=== PATIENT | male | born 1955 | race Caucasian/White ===

== ENCOUNTER 2021-11-02 12:53 | Inpatient (IN) | payer OTHER, MEDICARE ==
[~2021-11-02] VITALS: Ht 160 cm; Wt 68.9 kg
[~2021-11-02 12:53] MED LIST: ASPIR 8181 MG PO; ATORVASTATIN CA10 MG PO; PLAVIX75 MG PO
[2021-11-02 13:23] LABS: BASOPHILS % 0.3 % (0.0-1.0); EOSINOPHILS # (AUTO) 0.1 (0.0-0.4); EOSINOPHILS % 0.8 % (0.0-6.0); HEMATOCRIT 47.1 % (38.2-49.6); HEMOGLOBIN 14.9 g/dL (14.0-18.0); LYMPHOCYTES # (AUTO) 1.9 (1.0-3.2); LYMPHOCYTES % 26.7 % (18.0-39.1); MEAN CORPUSCULAR HEMOGLOBIN 30.7 pg (28-32); MEAN CORPUSCULAR HGB CONC 31.6 g/dL (31-35); MEAN CORPUSCULAR VOLUME 96.9 fL (81-99); MONOCYTES # (AUTO) 0.4 (0.2-0.8); MONOCYTES % 5.5 % (4.4-11.3); NEUTROPHILS # (AUTO) 4.8 (2.1-6.9); NEUTROPHILS % 66.4 % (38.7-80.0); PLATELET COUNT 240 x10e3/uL (140-360); RED BLOOD COUNT 4.86 x10e6/uL (4.3-5.7); RED CELL DISTRIBUTION WIDTH 12.7 % (11.7-14.4)
[2021-11-02 13:46] LABS: INR 0.87; PROTHROMBIN TIME 12.5 seconds (11.9-14.5)
[2021-11-02 13:47] LABS: PARTIAL THROMBOPLASTIN TIME 31.9 seconds (23.8-35.5)
[2021-11-02 13:52] LABS: CLARITY,URINE TURBID (CLEAR); COLOR,URINE YELLOW (YELLOW); LEUKOCYTE ESTERASE ,URINE NEGATIVE (NEGATIVE)
[2021-11-02 13:53] LABS: KETONES,URINE NEGATIVE (NEGATIVE); NITRITE,URINE NEGATIVE (NEGATIVE); PROTEIN,URINE DIPSTICK NEGATIVE (NEGATIVE)
[2021-11-02 13:58] LABS: ALBUMIN 3.8 g/dL (3.5-5.0); ALBUMIN/GLOBULIN RATIO 0.9 (0.8-2.0); ALKALINE PHOSPHATASE 64 IU/L (40-150); ANION GAP 15.9 mmol/L (8-16); BLOOD UREA NITROGEN 10 mg/dL (7-26); BUN/CREATININE RATIO 12 (6-25); CALCIUM 9.2 mg/dL (8.4-10.2); CARBON DIOXIDE 25 mmol/L (22-29); CHLORIDE 102 mmol/L (98-107); CREATINE KINASE 66 IU/L (30-200); CREATININE, SERUM 0.82 mg/dL (0.72-1.25); EST GLOMERULAR FILTRATION RATE 94 ML/MIN (60-); GLUCOSE 93 mg/dL (74-118); POTASSIUM 5.9 mmol/L (3.5-5.1); SODIUM 137 mmol/L (136-145)
[2021-11-02 13:58] LABS: AMORPHOUS SEDIMENT,URINE MODERATE (FEW); BACTERIA,URINE FEW /HPF; EPITHELIAL CELLS,URINE FEW /LPF; RBC,URINE 0-5 /HPF (0-5); WBC,URINE (MAN) 0-5 /HPF (0-5)
[2021-11-02 13:59] LABS: ALANINE AMINOTRANSFERASE < 6 IU/L (0-55)
[2021-11-02] MEDS ORDERED: SODIUM CHLORIDE 0.9% 1000ML 1,000 ML IV STA (14:55)
[2021-11-02 17:00] VITALS: BP 137/80
[2021-11-02] MEDS: SODIUM CHLORIDE 0.9% 1000ML 1,000 ML IV SCH (17:00)
[2021-11-02] MEDS ORDERED: CARBIDOPA-LEVO1 EAC2 PO (19:57)
[2021-11-02] MEDS ORDERED: CARBIDOPA-LEVO1 EAC4 PO (19:57)
[2021-11-02] MEDS ORDERED: AMITIZA24 MCG PO (19:57)
[2021-11-02] MEDS ORDERED: QUETIAPINE FUMA50 MG PO (19:57)
[2021-11-02 20:00] VITALS: BP 154/78
[2021-11-02 20:04] LABS: CREATINE KINASE MB 0.9 ng/mL (0-5.0)
[2021-11-02] MEDS: QUETIAPINE FUMARATE 25 MG TAB PO SCH (20:54)
[2021-11-02] MEDS: CARBIDOPA/LEVODOPA 25/100 CR TAB PO SCH (20:54)
[2021-11-02 21:00] VITALS: BP 154/78
[2021-11-02] MEDS ORDERED: CARBIDOPA/LEVODOPA 25/250 TAB PO SCH (21:00)
[2021-11-03] VITALS (8 sets, daily range): BP systolic 83–150; BP diastolic 56–84
[2021-11-03 00:57] LABS: CREATINE KINASE MB 0.8 ng/mL (0-5.0)
[2021-11-03 05:25] LABS: BASOPHILS % 0.5 % (0.0-1.0); EOSINOPHILS # (AUTO) 0.1 (0.0-0.4); EOSINOPHILS % 1.3 % (0.0-6.0); HEMATOCRIT 46.2 % (38.2-49.6); HEMOGLOBIN 14.3 g/dL (14.0-18.0); LYMPHOCYTES % 39.3 % (18.0-39.1); MEAN CORPUSCULAR HEMOGLOBIN 30.7 pg (28-32); MEAN CORPUSCULAR VOLUME 99.1 fL (81-99); MONOCYTES # (AUTO) 0.6 (0.2-0.8); MONOCYTES % 7.5 % (4.4-11.3); NEUTROPHILS # (AUTO) 3.9 (2.1-6.9); NEUTROPHILS % 51.1 % (38.7-80.0); PLATELET COUNT 209 x10e3/uL (140-360); RED BLOOD COUNT 4.66 x10e6/uL (4.3-5.7); RED CELL DISTRIBUTION WIDTH 12.4 % (11.7-14.4)
[2021-11-03] MEDS: SODIUM CHLORIDE 0.9% 1000ML 1,000 ML IV SCH ×2 (05:40→20:55)
[2021-11-03 05:59] LABS: PHOSPHORUS 3.6 MG/DL (2.3-4.7)
[2021-11-03 06:02] LABS: ALBUMIN 3.4 g/dL (3.5-5.0); ALBUMIN/GLOBULIN RATIO 1.2 (0.8-2.0); ALKALINE PHOSPHATASE 59 IU/L (40-150); BLOOD UREA NITROGEN 9 mg/dL (7-26); BUN/CREATININE RATIO 12 (6-25); CALCIUM 8.9 mg/dL (8.4-10.2); CARBON DIOXIDE 23 mmol/L (22-29); CHLORIDE 108 mmol/L (98-107); CHOL/HDL RATIO 3.5 (3.9-4.7); CHOLESTEROL 154 MD/DL (0-199); CREATININE, SERUM 0.73 mg/dL (0.72-1.25); EST GLOMERULAR FILTRATION RATE 108 ML/MIN (60-); GLUCOSE 83 mg/dL (74-118); HDL CHOLESTEROL 44 MG/DL (40-60); LDL CHOLESTEROL 89 MG/DL (60-130); SODIUM 142 mmol/L (136-145); TRIGLYCERIDES 107 MG/DL (0-149)
[2021-11-03 06:10] LABS: ALANINE AMINOTRANSFERASE < 6 IU/L (0-55)
[2021-11-03] MEDS ORDERED: LUBIPROSTONE 24 MCG CAP PO SCH (09:00)
[2021-11-03] MEDS ORDERED: CARBIDOPA/LEVODOPA 25/250 TAB PO SCH (09:00)
[2021-11-03] MEDS ORDERED: ATORVASTATIN 10 MG TAB PO SCH (09:00)
[2021-11-03] MEDS ORDERED: LISINOPRIL 10 MG TAB PO SCH (09:00)
[2021-11-03] MEDS ORDERED: SODIUM CHLORIDE 0.9% 50ML 50 ML ONE (09:14)
[2021-11-03] MEDS ORDERED: GADOBENATE DIMEGLUMINE 1 ML IV ONE (09:15)
[2021-11-03] MEDS: ASPIRIN 81 MG CHEW TAB PO SCH (10:30)
[2021-11-03] MEDS: CLOPIDOGREL BISULFATE 75 MG TAB PO SCH (10:30)
[2021-11-03] MEDS: CARBIDOPA/LEVODOPA 10/100 TAB PO SCH (17:58)
[2021-11-03] MEDS: QUETIAPINE FUMARATE 25 MG TAB PO SCH (20:55)
[2021-11-03] MEDS: CARBIDOPA/LEVODOPA 25/100 CR TAB PO SCH (20:55)
[2021-11-03] MEDS ORDERED: ONDANSETRON HCL INJ 2MG/ML 2ML 2 MG/ML VIAL IV PRN (22:00)
[2021-11-03] MEDS ORDERED: HYDRALAZINE HCL 20 MG/ML VIAL IV PRN (22:00)
[2021-11-03] MEDS ORDERED: ACETAMINOPHEN 325 MG TAB PO PRN (22:00)
[2021-11-04] VITALS (8 sets, daily range): BP systolic 95–140; BP diastolic 60–78
[2021-11-04] MEDS ORDERED: HYDRALAZINE HCL 20 MG/ML VIAL IV PRN (02:00)
[2021-11-04 05:17] LABS: BASOPHILS % 0.4 % (0.0-1.0); EOSINOPHILS # (AUTO) 0.1 (0.0-0.4); HEMATOCRIT 41.5 % (38.2-49.6); HEMOGLOBIN 13.1 g/dL (14.0-18.0); LYMPHOCYTES # (AUTO) 2.8 (1.0-3.2); MEAN CORPUSCULAR HEMOGLOBIN 30.2 pg (28-32); MEAN CORPUSCULAR HGB CONC 31.6 g/dL (31-35); MEAN CORPUSCULAR VOLUME 95.6 fL (81-99); MONOCYTES # (AUTO) 0.5 (0.2-0.8); MONOCYTES % 6.7 % (4.4-11.3); NEUTROPHILS # (AUTO) 3.4 (2.1-6.9); NEUTROPHILS % 50.6 % (38.7-80.0); PLATELET COUNT 215 x10e3/uL (140-360); RED BLOOD COUNT 4.34 x10e6/uL (4.3-5.7); RED CELL DISTRIBUTION WIDTH 12.3 % (11.7-14.4)
[2021-11-04 05:45] LABS: ALANINE AMINOTRANSFERASE < 6 IU/L (0-55); ALBUMIN 3.3 g/dL (3.5-5.0); ALBUMIN/GLOBULIN RATIO 1.1 (0.8-2.0); ALKALINE PHOSPHATASE 61 IU/L (40-150); ANION GAP 12.7 mmol/L (8-16); BLOOD UREA NITROGEN 11 mg/dL (7-26); BUN/CREATININE RATIO 14 (6-25); CALCIUM 8.8 mg/dL (8.4-10.2); CARBON DIOXIDE 25 mmol/L (22-29); CHLORIDE 105 mmol/L (98-107); CREATININE, SERUM 0.78 mg/dL (0.72-1.25); EST GLOMERULAR FILTRATION RATE 100 ML/MIN (60-); GLUCOSE 87 mg/dL (74-118); POTASSIUM 3.7 mmol/L (3.5-5.1); SODIUM 139 mmol/L (136-145)
[2021-11-04] MEDS: FAMOTIDINE 20 MG TAB PO SCH ×2 (07:30→17:05)
[2021-11-04] MEDS: CARBIDOPA/LEVODOPA 10/100 TAB PO SCH ×2 (09:00→13:56)
[2021-11-04] MEDS: DOCUSATE SODIUM 100 MG CAP PO SCH ×2 (09:00→17:05)
[2021-11-04] MEDS: SODIUM CHLORIDE 0.9% 1000ML 1,000 ML IV SCH ×2 (10:20→23:40)
[2021-11-04] MEDS: CLOPIDOGREL BISULFATE 75 MG TAB PO SCH (13:52)
[2021-11-04] MEDS: LUBIPROSTONE 24 MCG CAP PO SCH (13:52)
[2021-11-04] MEDS: ASPIRIN 81 MG CHEW TAB PO SCH (13:52)
[2021-11-04] MEDS: CARBIDOPA/LEVODOPA 25/250 TAB PO SCH (17:05)
[2021-11-04] MEDS ORDERED: ATORVASTATIN 20 MG TAB PO SCH (21:00)
[2021-11-04] MEDS: QUETIAPINE FUMARATE 25 MG TAB PO SCH (21:22)
[2021-11-04] MEDS: CARBIDOPA/LEVODOPA 25/100 CR TAB PO SCH (21:22)
[2021-11-05] VITALS: BP 110/66
[2021-11-05 04:00] VITALS: BP 100/57
[2021-11-05 05:06] LABS: BASOPHILS % 0.4 % (0.0-1.0); EOSINOPHILS # (AUTO) 0.1 (0.0-0.4); EOSINOPHILS % 1.6 % (0.0-6.0); HEMATOCRIT 40.9 % (38.2-49.6); HEMOGLOBIN 13.3 g/dL (14.0-18.0); LYMPHOCYTES % 43.5 % (18.0-39.1); MEAN CORPUSCULAR HEMOGLOBIN 30.6 pg (28-32); MEAN CORPUSCULAR HGB CONC 32.5 g/dL (31-35); MONOCYTES # (AUTO) 0.5 (0.2-0.8); MONOCYTES % 6.9 % (4.4-11.3); NEUTROPHILS # (AUTO) 3.2 (2.1-6.9); NEUTROPHILS % 47.3 % (38.7-80.0); PLATELET COUNT 204 x10e3/uL (140-360); RED BLOOD COUNT 4.35 x10e6/uL (4.3-5.7); RED CELL DISTRIBUTION WIDTH 12.4 % (11.7-14.4)
[2021-11-05 05:21] LABS: ANION GAP 11.6 mmol/L (8-16); CALCIUM 8.6 mg/dL (8.4-10.2); CREATININE, SERUM 0.75 mg/dL (0.72-1.25); MAGNESIUM 2.3 MG/DL (1.3-2.1); PHOSPHORUS 3.7 MG/DL (2.3-4.7); POTASSIUM 3.6 mmol/L (3.5-5.1)
[2021-11-05] MEDS: FAMOTIDINE 20 MG TAB PO SCH ×2 (07:30→16:30)
[2021-11-05] MEDS ORDERED: ONDANSETRON HCL 4 MG ORAL DISINTEGRATING TAB PO PRN (07:45)
[2021-11-05 08:00] VITALS: BP 124/72
[2021-11-05 08:23] VITALS: BP 124/72
[2021-11-05] MEDS: CARBIDOPA/LEVODOPA 25/250 TAB PO SCH ×3 (09:00→17:46)
[2021-11-05] MEDS: LUBIPROSTONE 24 MCG CAP PO SCH (09:00)
[2021-11-05] MEDS: CLOPIDOGREL BISULFATE 75 MG TAB PO SCH (09:00)
[2021-11-05] MEDS: ASPIRIN 81 MG CHEW TAB PO SCH (09:00)
[2021-11-05] MEDS: DOCUSATE SODIUM 100 MG CAP PO SCH ×2 (09:00→16:47)
[2021-11-05 11:43] VITALS: BP 112/91
[2021-11-05] MEDS: SODIUM CHLORIDE 0.9% 1000ML 1,000 ML IV SCH (13:00)
[2021-11-05 16:00] VITALS: BP 124/74
[2021-11-05] MEDS ORDERED: ATORVASTATIN CA20 MG PO (17:47)
== END 2021-11-05 19:15 | disposition home or self-care (01) | DRG 312 ==
LOC: ER 13:15 → ERHOLD 16:00 → MED/SURG2 16:39
PROVIDERS: ADMIT Internal Medicine; ATTEND Internal Medicine
DX: R55 Syncope and collapse (principal); R53.1 Weakness; I69.320 Aphasia following cerebral infarction; G20 Parkinson's disease; Z90.49 Acquired absence of other specified parts of digestive tract; I10 Essential (primary) hypertension; E78.5 Hyperlipidemia, unspecified; I65.22 Occlusion and stenosis of left carotid artery
CPT/HCPCS: 36415; 70450; 70544; 70549; 70553; 80048; 80053; 80061; 81001; 82550; 82553; 83036; 83735; 84100; 84132; 84443; 84484; 85025; 85610; 85730; 87086; 93005; 93306; 93880; 94799; 99284; J7030; U0002